=== PATIENT | male | born 1985 | race Hispanic/Latino ===

== ENCOUNTER 2018-06-04 22:35 | Emergency (ER) | payer OTHER ==
[~2018-06-04] VITALS: Ht 182.9 cm; Wt 118.2 kg
[2018-06-04] MEDS ORDERED: BUPR300T34 PO (22:45)
[2018-06-04] MEDS ORDERED: ZYRT10CA PO (22:45)
[2018-06-04] MEDS ORDERED: APAP325T4 PO (22:45)
[2018-06-04] MEDS ORDERED: MIRT15TA3 PO (22:45)
[2018-06-04] MEDS ORDERED: FLON1SPR NARES (22:45)
[2018-06-04] MEDS ORDERED: MELO15TA28 PO (22:45)
[2018-06-04] MEDS ORDERED: ALBU17IN2 INH (22:45)
[2018-06-04] MEDS ORDERED: EPIN0.3I11 IM (22:45)
[2018-06-05 03:19] VITALS: BP 137/90
== END 2018-06-05 03:22 | disposition home or self-care (01) ==
LOC: M ED 22:35
DX: R25.1 Tremor, unspecified (principal); Z79.899 Other long term (current) drug therapy; Z91.018 Allergy to other foods

== ENCOUNTER → 2018-10-15 | Outpatient (CLI) | payer OTHER ==
[~2018-10-15] MED LIST: ALBU17IN2 INH; APAP325T4 PO; BUPR300T34 PO; EPIN0.3I11 IM; FLON1SPR NARES; GASTROGRAFIN SOLUTION 30ML (Q9963) As Ordered ONE; ISOVUE-370 76% 100ML VIAL (Q9967) As Ordered ONE; MELO15TA28 PO; MIRT15TA3 PO; ZYRT10CA PO
--- NOTE | 2018-10-16 05:33 | REP ---
Clinical: Liver mass is. Technique: Axial contrast enhanced images of the abdomen and pelvis from the lung bases to the pubic symphysis using oral and intravenous contrast material with images obtained in the portal venous phase of enhancement. Precontrast, arterial phase, and delayed phase images of the abdomen obtained along with coronal and sagittal re-formations. Comparison: None. Findings: Innumerable relatively homogeneously enhancing liver lesions are identified throughout the liver which demonstrate maximal enhancement in the portal venous phase and near complete washout on 5-minute delayed imaging. Largest lesion is identified within the medial left lobe and measures roughly 4.7 cm diameter demonstrating central fibrosis/scar. These findings are nonspecific by CT characteristics although the two largest lesions demonstrate central areas of suspected fibrosis/scarring suggesting the possibility of benign focal nodular hyperplasia. Differential diagnosis includes but is not limited to multiple hepatic adenomas. Less likely based on characteristics, malignancy cannot be excluded. Spleen, pancreas, gallbladder, bilateral adrenal glands and kidneys are normal. The enteric system is without obstruction or acute inflammatory process. Normal terminal ileum and appendix are identified in the right lower quadrant. Pelvis demonstrates normal bladder and age appropriate prostate/seminal vesicles. No ascites. No adenopathy. No free air. Abdominal aorta and vasculature appear normal. Musculoskeletal structures are intact. Lung bases are clear. Impression: 1. Multiple primarily homogeneously enhancing liver lesions with the largest lesions demonstrating central areas of low density suggesting central scar. Differential diagnosis includes but is not limited to multiple focal nodular hyperplasia as well as hepatic adenomas. Electronically Signed by Sylvester Wells MD 10/16/2018 05:24 A
== END ==
LOC: M RAD 12:02
PROVIDERS: ATTEND Physician Assistant
DX: R16.0 Hepatomegaly, not elsewhere classified (principal)
CPT/HCPCS: 74178; Q9963; Q9967